=== PATIENT | male | born 1990 | race Caucasian/White ===

== ENCOUNTER 2023-06-10 22:51 | Emergency (ER) | payer BC ==
[~2023-06-10] VITALS: Ht 162.6 cm; Wt 61.7 kg
[2023-06-11 00:04] VITALS: BP 140/90; TEMP 98; O2SAT 99
[2023-06-11] MEDS ORDERED: KETOROLAC TROMETHAMINE INJ 30 MG/ML VIAL ONE (00:25)
[2023-06-11] MEDS: KETOROLAC TROMETHAMINE INJ 30 MG/ML VIAL IM ONE (00:26)
[2023-06-11] MEDS: CYCLOBENZAPRINE 10 MG TABLET PO ONE (00:26)
[2023-06-11] MEDS ORDERED: CYCLOBENZAPRINE 10 MG TABLET ONE (00:26)
== END 2023-06-11 01:56 | disposition left against medical advice (07) ==
LOC: ER 23:14
DX: M25.512 Pain in left shoulder (principal); R07.89 Other chest pain; V49.49XA Driver injured in collision with other motor vehicles in traffic accident, initial encounter; Y93.89 Activity, other specified; Y92.488 Other paved roadways as the place of occurrence of the external cause; Y99.8 Other external cause status
CPT/HCPCS: 99284; 96372; 71100; 73030; J1885

== ENCOUNTER → 2024-11-14 | Emergency (ER) | payer BC ==
[~2024-11-14] VITALS: Ht 162.6 cm; Wt 65.8 kg
[2024-11-14 20:08] VITALS: TEMP 98.3
[2024-11-14 23:03] VITALS: BP 125/85; O2SAT 97
== END | disposition home or self-care (01) ==
LOC: ER 19:56
DX: M54.2 Cervicalgia (principal); M25.511 Pain in right shoulder; R42 Dizziness and giddiness; Z53.29 Procedure and treatment not carried out because of patient's decision for other reasons; Z60.2 Problems related to living alone; V49.40XA Driver injured in collision with unspecified motor vehicles in traffic accident, initial encounter; Y93.89 Activity, other specified; Y92.410 Unspecified street and highway as the place of occurrence of the external cause; Y99.9 Unspecified external cause status
CPT/HCPCS: 70450-TC; 72125-TC; 72131-TC; 73030-TC